=== PATIENT | female | born 1950 | race Caucasian/White ===

== ENCOUNTER 2017-01-26 10:25 | Emergency (ER) | payer MEDICARE, BC ==
[2017-01-26] MEDS ORDERED: KETOROLAC TROMETHAMINE 60 MG/2 ML VIAL IM ONE ×2 (11:22→11:26)
[2017-01-26] MEDS ORDERED: DIAZEPAM 5 MG/ML SYRG IM ONE (11:22)
--- NOTE | 2017-01-26 11:22 | ERNOTE ---
Back Pain ER HPI Date of Service: 01/26/17 Presenting Symptoms: injury/pain to back Time Seen by Provider: 01/26/17 11:17 Source: patient, RN notes reviewed Exam Limitations: no limitations Immunizations: IMMUNIZATION HX Immunizations Up to Date Yes Allergies/Adverse Reactions: Allergies No Known Allergies Allergy (Verified 01/26/17 10:49) Home Medications: HOME MEDICATIONS Diltiazem HCl [Diltiazem 24Hr Cd] 180 mg PO DAILY 01/26/17 [Last Taken Unknown] Folic Acid 1 mg PO DAILY 01/26/17 [Last Taken Unknown] HYDROcodone/ACETAMINOPHEN [[place] 5-325] 1 - 2 tab PO Q6H PRN #20 tab 01/26/17 [ Last Taken Unknown] Ibuprofen [Motrin] 600 mg PO Q6H PRN #40 tab 01/26/17 [Last Taken Unknown] Levothyroxine Sodium [Synthroid] 75 mcg PO DAILY 01/26/17 [Last Taken Unknown] Mesalamine [Apriso] 0.375 gm PO QID 01/26/17 [Last Taken Unknown] Simvastatin [Zocor] 20 mg PO HS 01/26/17 [Last Taken Unknown] - Pain Score Pain Score #1 Pain Score: 9 Narrative: 66 y/o female ambulatory to the ED for pain in her sacrum/coccyx region and both hips after a fall last evening. She tripped on a toy and fell onto her low back and buttocks. She has not taken anything for pain today. Date (Duration): 01/25/17 Recent Injury?: Reports: yes Possible Precipitating Factor: Reports: fall/near fall Associated Symptoms: Reports: difficulty walking. Denies: sweating, constipation/incontinence, nausea/vomiting, problems urinating, lightheadedness , numbess/weakness in legs Prior Treament: Denies: recently seen, similar symptoms before Review of Systems - Review of Systems Constitutional: Absent: recent illness, fever, chills EYE: Present: no symptoms reported ENT: Present: no symptoms reported Respiratory: Present: no symptoms reported Cardiology: Present: no symptoms reported Gastrointestinal/Abdominal: Present: no symptoms reported Genitourinary: Absent: dysuria, hematuria Musculoskeletal: Present: back pain, muscle pain, muscle stiffness. Absent: joint pain, joint swelling Skin: Absent: rash, lesions, lumps, change in color Neurological: Absent: weakness, numbness, tingling Endocrine: Present: no symptoms reported Hematologic/Lymphatic: Present: no symptoms reported Psych: Present: no symptoms reported - Patient's Past Medical History Patient History - Medical: Hypothyroidism, Other Patient History - Cardiac/Respiratory: Hypertension, Hyperlipidemia Patient History - Cancer: No Hx of Cancer Patient History - Surgical Procedures: Hysterectomy, T & A Patient History - Other: None LMP (females 10-50): Menopausal - Social History Living Situations: home Psych History: No pertinent hx Smoking Status: Never smoker Alcohol Use: none Drug Use: none - Immunizations Immunizations Up to Date: Yes Physical Exam - Physical Exam General Appearance: Present: wd/wn, alert, mild distress Respiratory: Present: no respiratory distress, no accessory muscle use Cardiovascular/Chest: Present: normal peripheral pulses Back Exam: Present: vertebral tenderness - coccyx, decreased range of motion Extremity Exam: Present: no edema, decreased range of motion - bilateral hips, no deformity, able to bear weight but gait is mildly impaired d/t pain. Absent : bony tenderness, joint swelling, extremity edema Neurological Exam: Present: alert, oriented, normal mood/affect, no motor/ sensory deficits Skin Exam: Present: normal color, warm/dry ED Progress - Vital Signs Patient's Vital Signs:: I have reviewed the patient's vital signs. Vital Signs: Vital Signs 01/26/17 10:43 Temperature 36.7 C Pulse Rate 85 Respiratory 12 Rate Blood Pressure 140/60 O2 Sat by Pulse 95 Oximetry - X-Ray X-Ray #1 X-Ray: hip Interpretation: Reviewed by me X-ray Comments: Bilateral hips show degenerative changes, no acute osseous abnormalities of hips /pelvis - Progress/Reassessment Chief Complaint: Back Pain Progress:: Improved Departure Clinical Impression: Hip pain, bilateral, Coccyx pain Fall at home Qualifiers: Encounter type: initial encounter Qualified Code(s): W19.XXXA - Unspecified fall, initial encounter; Y92.099 - Unspecified place in other non-institutional residence as the place of occurrence of the external cause - Departure Disposition: Home Follow Up Needed Condition: Stable Instructions: Tailbone Injury Additional Instructions: Ice/heat to sore areas Take ibuprofen routinely and hydrocodone as needed Contact your surgeon regarding your colonoscopy Prescriptions: HYDROcodone/ACETAMINOPHEN [[place] 5-325] 1 - 2 tab PO Q6H PRN #20 tab PRN Reason: Pain Ibuprofen [Motrin] 600 mg PO Q6H PRN #40 tab PRN Reason: Pain
[2017-01-26] MEDS ORDERED: DIAZEPAM 5 MG/ML SYRG ONE (11:26)
[2017-01-26 12:47] VITALS: BP 128/67
== END 2017-01-26 12:48 | disposition home or self-care (01) ==
LOC: ER 10:25
DX: M25.551 Pain in right hip (principal); S33.8XXA Sprain of other parts of lumbar spine and pelvis, initial encounter; W01.0XXA Fall on same level from slipping, tripping and stumbling without subsequent striking against object, initial encounter; Y93.9 Activity, unspecified; Y92.9 Unspecified place or not applicable; I10 Essential (primary) hypertension; E78.5 Hyperlipidemia, unspecified; E03.9 Hypothyroidism, unspecified